=== PATIENT | female | born 1990 | race Caucasian/White ===

== ENCOUNTER 2016-09-08 20:57 | Outpatient (CLI) | payer MEDICAID ==
[2016-09-08] MEDS ORDERED: LACTATED RINGERS 500 ML IV ONE (21:38)
[2016-09-08 22:09] LABS: Bacteria,Urine 1+ /HPF (Negative); Bilirubin,Urine NEG (Negative); Blood,Urine NEG (Negative); Ketones,Urine NEG (Negative); Leukocyte Esterase,Urine TR (Negative); Mucus,Urine FEW /HPF; Nitrite,Urine NEG (Negative); Protein,Urine <15 mg/dL mg/dL (Negative); Urobilinogen,Urine < 2.0 mg/dL (<2.0); WBC,Urine < 1.0 /HPF (0.0-6.0)
[2016-09-08 23:44] VITALS: BP 110/66
== END 2016-09-08 22:55 | disposition home or self-care (01) ==
LOC: TRG 20:57
PROVIDERS: ATTEND Obstetrics & Gynecology
DX: O77.9 Labor and delivery complicated by fetal stress, unspecified (principal); O47.9 False labor, unspecified; Z3A.00 Weeks of gestation of pregnancy not specified
CPT/HCPCS: 59025; 81001

== ENCOUNTER 2016-10-25 15:04 | Outpatient (CLI) | payer MEDICAID ==
[2016-10-25 15:53] LABS: Hematocrit 33.9 % (30.3-42.9); Hemoglobin 11.1 gm/dl (10.1-14.3); Mean Corpuscular HGB Conc 33 % (30-34); Mean Corpuscular Hemoglobin 30 pg (28-32); Mean Corpuscular Volume 90 fl (79-97); Platelet Count 351 K/mm3 (140-440); Red Blood Count 3.77 M/mm3 (3.65-5.03); Red Cell Distribution Width 14.1 % (13.2-15.2); White Blood Count 8.9 K/mm3 (4.5-11.0)
[2016-10-25 16:17] LABS: Bilirubin,Urine NEG (Negative); Blood,Urine NEG (Negative); Ketones,Urine NEG (Negative); Leukocyte Esterase,Urine NEG (Negative); Mucus,Urine FEW /HPF; Nitrite,Urine NEG (Negative); Protein,Urine <15 mg/dL mg/dL (Negative); Urobilinogen,Urine < 2.0 mg/dL (<2.0); WBC,Urine < 1.0 /HPF (0.0-6.0)
[2016-10-25 16:22] LABS: Alanine Aminotransferase 14 units/L (7-56); Lactate Dehydrogenase 207 units/L (91-180); Uric Acid 3.3 mg/dL (3.5-7.6)
[2016-10-25 16:49] VITALS: BP 100/67
== END 2016-10-25 17:15 | disposition home or self-care (01) ==
LOC: TRG 15:04
PROVIDERS: ATTEND Obstetrics & Gynecology
DX: O47.03 False labor before 37 completed weeks of gestation, third trimester (principal); Z3A.33 33 weeks gestation of pregnancy
CPT/HCPCS: 36415; 59025; 81001; 82565; 83615; 84450; 84460; 84550; 85027

== ENCOUNTER 2016-11-14 21:06 | Outpatient (CLI) | payer MEDICAID ==
[2016-11-14 21:25] VITALS: BP 104/65
== END 2016-11-14 22:10 | disposition home or self-care (01) ==
LOC: TRG 21:06
PROVIDERS: ATTEND Obstetrics & Gynecology
DX: Z34.93 Encounter for supervision of normal pregnancy, unspecified, third trimester (principal); Z3A.36 36 weeks gestation of pregnancy
CPT/HCPCS: 59025

== ENCOUNTER 2016-11-21 10:26 | Outpatient (CLI) | payer MEDICAID ==
[2016-11-21 12:11] VITALS: BP 105/63
[2016-11-21] MEDS ORDERED: TYLENOL PO ONE (13:30)
== END 2016-11-21 13:40 | disposition home or self-care (01) ==
LOC: TRG 10:26
PROVIDERS: ATTEND Obstetrics & Gynecology
DX: O47.1 False labor at or after 37 completed weeks of gestation (principal); Z3A.37 37 weeks gestation of pregnancy
CPT/HCPCS: 59025

== ENCOUNTER 2016-11-25 19:20 | Outpatient (CLI) | payer MEDICAID ==
[2016-11-25 19:33] VITALS: BP 110/68
== END 2016-11-25 20:24 | disposition home or self-care (01) ==
LOC: TRG 19:20
PROVIDERS: ATTEND Obstetrics & Gynecology
DX: Z34.93 Encounter for supervision of normal pregnancy, unspecified, third trimester (principal); Z3A.38 38 weeks gestation of pregnancy

== ENCOUNTER 2016-11-28 10:22 | Inpatient (IN) | payer MEDICAID ==
[2016-11-28] MEDS ORDERED: PITOCin/NS 30 UNIT/500ML 30 UNITS/500 ML BAG IV SCH (12:00)
[2016-11-28] MEDS ORDERED: ZOFRAN IV PRN (12:05)
[2016-11-28] MEDS ORDERED: BRETHINE IVP PRN (12:05)
[2016-11-28] MEDS ORDERED: ePHEDrine SULFATE IV PRN (12:05)
[2016-11-28] MEDS ORDERED: STADOL IV PRN (12:05)
[2016-11-28] MEDS ORDERED: NARCAN 0.4 MG/1 ML IV PRN (12:05)
[2016-11-28] MEDS ORDERED: MINERAL OIL PO PRN (12:05)
[2016-11-28] MEDS ORDERED: BRETHINE SUB-Q PRN (12:05)
[2016-11-28] MEDS ORDERED: SUBLIMAZE IV PRN (12:05)
[2016-11-28] MEDS ORDERED: XYLOCAINE 2% INFILTRATI ONE (12:05)
[2016-11-28] MEDS ORDERED: PITOCin/NS 20 UNIT/1000ML DRIP 20 UNITS/1,000 ML BAG IV SCH (13:00)
[2016-11-28] MEDS: LACTATED RINGERS 1,000 ML IV SCH ×2 (13:15→14:45)
--- NOTE | 2016-11-28 13:40 | History and Physical Report ---
History of Present Illness Date of examination: 11/28/16 Date of admission: 11/28/16 12:10 History of present illness: 26 yo LMP EDC @ 38.5 weeks gestation presented to triage with c/o SROM clear fluid that occurred at 1:00am this morning. Denies VB or ctx, Rports positive FM. First trimester entry into care at 8 weeks gestation. course complicated by obesity with NL early and second trimester diabetic screens. Positive genetic screening for T-21 with negative NIPT and NL U/S with [facility].. Low lying placenta with resolution by U/s at [facility] in October 2016. Also treated for anemia with iron sublimation BID. She is GBS negative. 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 ) Social history: no significant social history - Obstetrical History Expected Date of Delivery: 12/07/16 Actual Gestation: 38 Week(s) 5 Day(s) : 4 Para: 1 Hx # Term Pregnancies: 1 Number of Pregnancies: 0 Spontaneous Abortions: 1 Induced : 1 Number of Living Children: 1 Medications and Allergies Allergies Allergy/AdvReac Type Severity Reaction Status Date / Time No Known Allergies Allergy Verified 11/21/16 12:13 Home Medications Medication Instructions Recorded Confirmed Last Taken Type Ferrous Sulfate [Ferrous Sulfate] 1 tab PO DAILY 11/21/16 11/21/16 11/20/16 21: 00 History Active Meds: Active Medications Butorphanol Tartrate (Stadol) 2 mg IV Q2H PRN PRN Reason: Pain , Severe (7-10) Fentanyl (Sublimaze) 100 mcg IV Q2H PRN PRN Reason: Labor Pain Lactated Ringer's (Lactated Ringers) 1,000 mls @ 125 mls/hr IV DIRECT RONALD Oxytocin/Sodium Chloride (Pitocin/Ns 20 Unit/1000ml Drip) 20 units in 1,000 mls @ 125 mls/hr IV DIRECT RONALD Oxytocin/Sodium Chloride (Pitocin/Ns 30 Unit/500ml) 30 units in 500 mls @ 4 mls /hr IV TITR RONALD PRN Reason: Protocol Mineral Oil (Mineral Oil) 30 ml PO QHS PRN PRN Reason: Constipation Naloxone HCl (Narcan 0.4 Mg/1 Ml) 0.1 mg IV Q2MIN PRN PRN Reason: Res Rate </= 8 or 02 SAT < 92% Ondansetron HCl (Zofran) 4 mg IV Q8H PRN PRN Reason: Nausea And Vomiting Review of Systems All systems: negative Breasts: deferred Genitourinary: normal appearance, leakage of fluid, contractions - Vital Signs Vital signs: Vital Signs Pulse BP 78 118/66 11/28/16 13:01 11/28/16 13:01 Temp Pulse Resp BP Pulse Ox 78 118/66 11/28/16 13:01 11/28/16 13:01 - Physical Exam Breasts: Positive: normal Cardiovascular: Regular rate Lungs: Positive: Normal air movement Abdomen: Positive: normal appearance, soft. Negative: distention, tenderness Vulva: both: normal Vagina: Positive: normal moisture Anus/Rectum: Positive: normal perianal skin Extremities: Positive: normal - Obstetrical FHR: category 1 FHR comments: spont prolonged decel Cervical Dilatation: 2 Cervical Effacement Percentage: 80 station: -2 Uterine Contraction Frequency (min): 2-4 Uterine Contraction Duration: 40-60 Uterine Contraction Pattern: Irregular Uterine Tone Measurement Phase: Resting Uterine Contraction Intensity: Moderate Results All other labs normal. Assessment and Plan A: IUP at 38.5 weeks gestation PROM at term-cler fluid GBS Negative P: Active Dustin't Pitocin
--- NOTE | 2016-11-28 13:59 | Event Note ---
Date: 11/28/16 Pitocin increased by 6mu. spontaneous deceleration to he 80's x 2-3 minutes. Pitocin off, FSE applied and 02 applied. Mom positioned left lateral. spontaneous recovery to FHT's to 140. Pulse ox in place.
[2016-11-28 15:01] LABS: Hematocrit 35.5 % (30.3-42.9); Hemoglobin 11.6 gm/dl (10.1-14.3); Mean Corpuscular HGB Conc 33 % (30-34); Mean Corpuscular Hemoglobin 29 pg (28-32); Mean Corpuscular Volume 89 fl (79-97); Platelet Count 345 K/mm3 (140-440); Red Blood Count 3.97 M/mm3 (3.65-5.03); Red Cell Distribution Width 14.6 % (13.2-15.2); White Blood Count 10.8 K/mm3 (4.5-11.0)
--- NOTE | 2016-11-28 15:46 | Procedure Note ---
OB Delivery Note - Delivery Date of Delivery: 11/28/16 (7lb male @ 1527) Surgeon: GIANNA LEE Estimated blood loss: <100cc - Vaginal Delivery presentation: vertex Delivery position: OA Intrapartum events: precipitous labor- <3hr Delivery induction: oxytocin Delivery monitor: external FHT, external uterine Route of delivery: Delivery placenta: spontaneous Delivery cord: 3 umbilical vessels Episiotomy: none Delivery laceration: none Anesthesia: epidural - A at 1 minute: 8 at 5 minutes: 9 Infant Gender: Male (Progressed rapidly to complete for delivery of viable male . Dried and bulb suctioned, spont. lusty cry, placed skin to skin. Apgars 8/9. S/S/I/3VC placenta. Pitocin infusing. Bleeding very scant. No lacerations on infection.)
[2016-11-28] MEDS ORDERED: TUCKS PAD TP PRN (15:49)
[2016-11-28] MEDS ORDERED: PHENERGAN PO PRN (15:49)
[2016-11-28] MEDS ORDERED: LANSINOH TP PRN (15:49)
[2016-11-28] MEDS ORDERED: BENADRYL PO PRN (15:49)
[2016-11-28] MEDS ORDERED: TYLENOL PO PRN (15:49)
[2016-11-28] MEDS ORDERED: DERMOPLAST TP PRN (15:49)
[2016-11-28] MEDS ORDERED: PHENERGAN PR PRN (15:49)
[2016-11-28] MEDS ORDERED: MILK OF MAGNESIA PO PRN (15:49)
[2016-11-28] MEDS ORDERED: DULCOLAX PR PRN (15:49)
[2016-11-28] MEDS ORDERED: SODIUM CHLORIDE FLUSH SYRINGE 10 ML IV SCH (16:00)
[2016-11-28] MEDS: MOTRIN PO SCH (16:33)
[2016-11-28] MEDS: NORCO 5/325 PO PRN (17:44)
[2016-11-28] MEDS ORDERED: COLACE PO SCH (22:00)
[2016-11-29] MEDS: NORCO 5/325 PO PRN ×3 (00:04→12:28)
[2016-11-29 05:38] LABS: Hematocrit 35.1 % (30.3-42.9); Hemoglobin 11.4 gm/dl (10.1-14.3)
[2016-11-29] MEDS ORDERED: BOOSTRIX IM ONE ×2 (06:05→12:00)
--- NOTE | 2016-11-29 08:10 | Progress Note ---
Assessment and Plan O; VSS AF PP H/H: 11.4/35.1 A: Stable PP Day1 P: D/C home per pts request RTO 4 week s PP Subjective - Subjective Date of service: 11/29/16 Interval history: 26 yo LMP EDC @ 38.5 weeks gestation presented to triage with c/o SROM clear fluid that occurred at 1:00am this morning. Denies VB or ctx, Rports positive FM. First trimester entry into care at 8 weeks gestation. course complicated by obesity with NL early and second trimester diabetic screens. Positive genetic screening for T-21 with negative NIPT and NL U/S with [facility].. Low lying placenta with resolution by U/s at [facility] in October 2016. Also treated for anemia with iron sublimation BID. She is GBS negative. Patient reports: appetite normal, voiding normally, pain well controlled, flatus , ambulating normally, other (c/o aterbirth pains) : doing well, nursing well, bottle feeding Objective - Vital Signs Latest vital signs: Vital Signs Temp Pulse Pulse Resp BP BP 11/29/16 01:16 97.9 F 69 18 114/55 11/28/16 20:55 98.2 F 73 20 122/82 11/28/16 16:44 97.2 F L 16 11/28/16 16:30 87 120/80 11/28/16 16:00 75 135/85 11/28/16 15:45 79 127/86 11/28/16 15:40 97.7 F 16 11/28/16 15:30 76 128/68 11/28/16 13:32 97.7 F 11/28/16 13:01 78 118/66 Intake and Output 11/28/16 11/29/16 11/29/16 22:59 06:59 14:59 Intake Total 660 Output Total 500 Balance 160 Intake: IV 300 Lactated Ringers 1,000 ml 200 @ 125 mls/hr IV DIRECT RONALD Rx#:[id number] PITOCin/NS 20 UNIT/1000ML 100 DRIP 20 units In 1,000 ml @ 125 mls/hr IV DIRECT RONALD Rx#:[id number] Intake, Free Water 360 Output: Urine 500 Void 500 Other: Total, Output Amount 500 # Voids Void 1 Estimated Blood Loss 100 - Exam Breasts: Present: deferred, normal Lungs: Present: Normal air movement Abdomen: Present: normal appearance, soft. Absent: distention, tenderness Uterus: Present: normal, firm, fundal height below umbilicus. Absent: bogginess , tenderness Extremities: Present: normal. Absent: edema
--- NOTE | 2016-11-29 08:17 | Discharge Summary ---
Providers - Providers Date of Admission: 11/28/16 12:10 Date of discharge: 11/29/16 Attending physician: ARUN BOLDEN Primary care physician: TRINO WILHELM MD Hospitalization Reason for admission: rupture of membranes, IUP at term Delivery: Episiotomy: none Laceration: none Other procedures: none complications: none Discharge diagnosis: IUP at term delivered [place] baby: female Condition at discharge: Good Disposition: DISCHARGED TO HOME OR SELFCARE Plan - Discharge Medications Prescriptions: HYDROcodone/APAP 5-325 [Brush 5/325] 1 each PO Q4HR PRN #20 tablet PRN Reason: Pain Ibuprofen [Motrin 800 MG tab] 800 mg PO TID PRN #30 tablet PRN Reason: Pain - Provider Discharge Summary Activity: routine, no sex for 6 weeks, no heavy lifting 4 weeks, no strenuous exercise Additional instructions: [] Smoking cessation referral if applicable(refer to patient education folder for contact #) [] Refer to [facility]'s [facility] Booklet Call your doctor immediately for: * Fever > 100.5 * Heavy vaginal bleeding ( >1 pad per hour) * Severe persistent headache * Shortness of breath * Reddened, hot, painful area to leg or breast * Drainage or odor from incision. * Keep incision clean and dry at all times and follow doctor's instructions regarding bathing/showering - Follow up plan Follow up: TRINO WILHELM MD [Primary Care Provider] - GIANNA LEE CNM [Advanced Practice Nurse] - (RTO 4 weeks )
[2016-11-29] MEDS ORDERED: PRENATAL VITAMIN PO SCH (10:00)
[2016-11-29] MEDS: MOTRIN PO SCH ×2 (12:27)
[2016-11-29] MEDS ORDERED: FLUARIX QUAD 2016-2017(36 MOS+) IM ONE (12:34)
[2016-11-29] MEDS ORDERED: M-M-R II VACCINE SUB-Q ONE (15:49)
[2016-11-29 17:54] VITALS: BP 118/84
== END 2016-11-29 18:10 | disposition home or self-care (01) | DRG 775 ==
LOC: TRG 10:22 → LD 12:10 → OB 17:03
PROVIDERS: ADMIT Obstetrics & Gynecology; ATTEND Obstetrics & Gynecology
PROC: 10E0XZZ Delivery of Products of Conception, External Approach (ICD-10-PCS; principal; 2016-11-28)
PROC: 3E033VJ Introduction of Other Hormone into Peripheral Vein, Percutaneous Approach (ICD-10-PCS; 2016-11-28)
PROC: 3E0S3CZ (ICD-10-PCS; 2016-11-28)
PROC: 00HU33Z Insertion of Infusion Device into Spinal Canal, Percutaneous Approach (ICD-10-PCS; 2016-11-28)
PROC: 3E0234Z Introduction of Serum, Toxoid and Vaccine into Muscle, Percutaneous Approach (ICD-10-PCS; 2016-11-29)
DX: O76 Abnormality in fetal heart rate and rhythm complicating labor and delivery (principal); O42.92 Full-term premature rupture of membranes, unspecified as to length of time between rupture and onset of labor; O99.019 Anemia complicating pregnancy, unspecified trimester; O99.52 Diseases of the respiratory system complicating childbirth; O62.3 Precipitate labor; O99.214 Obesity complicating childbirth; E66.9 Obesity, unspecified; Z68.37 Body mass index [BMI] 37.0-37.9, adult; Z3A.38 38 weeks gestation of pregnancy; Z37.0 Single live birth; Z23 Encounter for immunization
CPT/HCPCS: 36415; 85014; 85018; 85027; 86850; 86900; 86901; 90471; 90686; 90715; G0008; J2405; J2590; J7120

== ENCOUNTER 2017-04-25 14:28 | Emergency (ER) | payer OTHER, MEDICAID ==
[2017-04-25 16:34] VITALS: BP 109/76
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
== END 2017-04-25 19:02 | disposition home or self-care (01) ==
LOC: ED 14:28
DX: J45.909 Unspecified asthma, uncomplicated (principal); F17.210 Nicotine dependence, cigarettes, uncomplicated
CPT/HCPCS: 71010; 72040; 99283

== ENCOUNTER 2020-11-01 21:00 | Outpatient (CLI) | payer MEDICAID ==
[2020-11-01] MEDS ORDERED: LACTATED RINGERS 1,000 ML IV SCH (21:30)
[2020-11-01 21:45] VITALS: BP 109/66
[2020-11-01] MEDS ORDERED: TERBUTALINE 1 MG/1 ML INJ SUB-Q SCH (22:00)
[2020-11-01 22:11] LABS: Bilirubin,Urine NEG (Negative); Blood,Urine MOD (Negative); Color,Urine Yellow (Yellow); Mucus,Urine 1+ /HPF; Urobilinogen,Urine < 2.0 mg/dL (<2.0)
== END 2020-11-02 01:08 | disposition home or self-care (01) ==
LOC: TRG 21:00 → APU 21:06 → TRG 11-02 01:08
PROVIDERS: ATTEND Obstetrics & Gynecology
DX: O46.8X3 Other antepartum hemorrhage, third trimester (principal); Z3A.29 29 weeks gestation of pregnancy
CPT/HCPCS: 36415; 59025; 81001; 84112; 96361; 96365; J0690; J7120; 96360

== ENCOUNTER 2021-08-11 08:11 | Day surgery (SDC) | payer MEDICAID ==
[~2021-08-11 08:11] MED LIST: SODIUM CHLORIDE 0.9% 1000 ML 1,000 ML IV SCH
--- NOTE | 2021-08-11 09:42 | Anesthesia Consultation ---
Anesthesia Consult and Med Hx Date of service: 08/11/21 - Airway Anesthetic Teeth Evaluation: Good ROM Head & Neck: Adequate Mental/Hyoid Distance: Adequate Mallampati Class: Class II Intubation Access Assessment: Probably Good - Pre-Operative Health Status ASA Pre-Surgery Classification: ASA2 Proposed Anesthetic Plan: MAC - Pulmonary Hx Smoking: Yes (<1PPD) Hx Respiratory Symptoms: No Hx Sleep Apnea: No (concern for MAE w/ sleep study pending) - Cardiovascular System Hx Hypertension: No - Central Nervous System CVA: No - Endocrine Hx Renal Disease: No Hx Liver Disease: No Hx Insulin Dependent Diabetes: No Hx Non-Insulin Dependent Diabetes: No Hx Thyroid Disease: No - Other Systems Hx Obesity: Yes - Additional Comments Anesthesia Medical History Comments: No hx anesthetic complications.
--- NOTE | 2021-08-11 09:42 | Anesthesia Day of Surgery ---
Anesthesia Day of Surgery - Day of Surgery Patient Examined: Yes Patient H&P Reviewed: Yes Patient is NPO: Yes
[2021-08-11] MEDS ORDERED: propofoL 200 MG/20 ML VIAL IV ONE ×2 (11:32→11:51)
[2021-08-11] MEDS ORDERED: LIDOCAINE (2%) 20 MG/1 ML VIAL 20 ML MDV INFILTRATI ONE (11:34)
[2021-08-11] MEDS ORDERED: MIDAZOLAM 2 MG/2 ML INJ ONE (11:43)
--- NOTE | 2021-08-11 12:15 | Procedure Note ---
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 F/U in 1 to 2 weeks ([phone]).)
--- NOTE | 2021-08-11 12:42 | Post Anesthesia Evaluation ---
- Post Anesthesia Evaluation Patient Participated: Yes Airway Patent: Yes Stable Respiratory Function: Yes Nausea/Vomiting: No Temp > 96.8F: Yes Pain Manageable: Yes Adequeate Hydration: Yes Anesthesia Complications: No
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
[2021-08-11 15:41] VITALS: BP 99/66
== END 2021-08-11 12:45 | disposition home or self-care (01) ==
LOC: GIO 08:11 → EDSTATUS 11:45 → GIO 12:45
DX: R10.13 Epigastric pain (principal); K31.819 Angiodysplasia of stomach and duodenum without bleeding; E66.9 Obesity, unspecified; F17.210 Nicotine dependence, cigarettes, uncomplicated; K29.70 Gastritis, unspecified, without bleeding; K20.80 Other esophagitis without bleeding; Z87.11 Personal history of peptic ulcer disease; Z79.899 Other long term (current) drug therapy; Z90.49 Acquired absence of other specified parts of digestive tract; Z98.890 Other specified postprocedural states
CPT/HCPCS: 43239; 43270; 88305; 88342; J2250; J2704; J3490; J7030; J7120; Q0162